=== PATIENT | female | born 2000 | race Caucasian/White ===

== ENCOUNTER 2023-12-03 17:15 | Outpatient (RCR) | payer OTHER, SELFPAY ==
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
--- NOTE | 2023-11-06 17:12 | OPREHPOC ---
Outpatient Therapy Plan of Care This is a Multidisciplinary Plan of Care that may contain components documented by all disciplines (PT, OT, and ST.) PT Problem 1 PT Problem #1 Knowledge Deficit PT Goal 1 Goal Independent with a HEP addressing strength and postural awarness Target Visit 2 PT Problem 2 PT Problem #2 Pain PT Goal 1 Goal -Pt. will reduce cervical and lumbar pain to 2/10 at worst with prolonged standing activities -Pt. will be able to sleep through the night without pain disturbance. Target Visit 10 PT Problem 3 PT Problem #3 Impaired Range of Motion PT Goal 1 Goal Pt. will demonstrate 85 degrees left cervical rotation and 40 degrees of left lateral flexion at the c-spine Target Visit 10 PT Problem 4 PT Problem #4 Impaired Strength PT Goal 1 Goal Pt. will present with good lower abdominal strength or better. PT Problem 5 PT Problem #5 Impaired Flexibility PT Goal 1 Goal pt. will present at 10 degrees from full knee extension with the 90/90 test on both right and left. Target Visit 10
--- NOTE | 2023-12-08 08:33 | PCPTNOTE ---
pt did not show for today's appt; called her and she had the wrong date, thought her appt was Fri. She apologized. Reminded her of her next appt, she stated she would be here for reeval appt.
--- NOTE | 2023-12-17 16:25 | PCPTNOTE ---
Ms. Loo failed to show for her scheduled appointment today, 12/17/23. Attempted to contact the pt. via phone but she did not answer. Left a message for the pt. to contact the clinic. Gurpreet Casey, MPT
--- NOTE | 2024-01-15 12:57 | PTOPDC ---
Assessment and note entered by Gurpreet Casey Evaluation Information Assessment Status Discharge - Pt Not Present Diagnosis acute upper back pain, low back pain Onset 09/09/23 Assessment PT Clinical Summary Ms. Loo attended a total of 4 treatment sessions. She did not show for her last 2 scheduled appointments and failed to contact the clinic regarding her status. Attempted to contact the pt . via phone with no response. She will be discharged from our care at this time. Refer to last daily note for pt. discharge status. Plan of Care PT Services Indicated NO
== END 2024-01-15 13:53 | disposition home or self-care (01) ==
LOC: ANHPT 17:15
PROVIDERS: PCP Family Medicine; Visit Provider Family Medicine
DX: M54.9 Dorsalgia, unspecified (principal); M54.50 Low back pain, unspecified; M79.604 Pain in right leg
CPT/HCPCS: 97110; 97140; 97161; 97530; 99199